=== PATIENT | male | born 1960 | race Caucasian/White ===

== ENCOUNTER 2018-07-04 09:34 | Emergency (ER) | payer BC, SELFPAY ==
[2018-07-04 10:20] LABS: Absolute Monocytes 0.8 K/uL (0.1-1.3); Absolute Neutrophil 3.6 K/uL (1.8-8.0); Basophils % 0.8 % (0-1.3); Eosinophils % 1.7 % (0-4.4); Hematocrit 40.4 % (39.6-49.0); Lymphocytes % 39.5 % (15.3-44.8); MPV 8.8 fL (7.6-11.3); RBC Red Blood Cell Count 5.69 M/uL (4.33-5.43)
[2018-07-04 10:22] LABS: Protime INR 0.86
[2018-07-04 10:37] LABS: ALT/SGPT 37 U/L (12-78); AST/SGOT 22 U/L (15-37); Albumin 3.5 g/dL (3.4-5.0); Alkaline Phosphatase 142 U/L (45-117); BUN Blood Urea Nitrogen 24 mg/dL (7-18); Bicarbonate 25 mmol/L (21-32); Bilirubin Direct 0.1 mg/dL (0-0.2); Bilirubin Total 0.4 mg/dL (0.2-1.0); Glucose Level 193 mg/dL (74-106); Magnesium 1.7 mg/dL (1.8-2.4); NT PRO-BNP 6 pg/mL (<125); Potassium 4.4 mmol/L (3.5-5.1); Protein, Total 7.5 g/dL (6.4-8.2); Sodium Level 138 mmol/L (136-145); Troponin (Emerg Dept Use Only) < 0.02 ng/mL (0.0-0.045)
--- NOTE | 2018-07-04 10:46 | RAD REPORT ---
EXAM DESCRIPTION: RAD - Chest Single View - 07/04/2018 10:35 am CLINICAL HISTORY: CHEST PAIN Chest pain. COMPARISON: Abdomen 1 View (KUB) dated 07/12/2016 FINDINGS: Portable technique limits examination quality. The lungs are grossly clear. The heart is normal in size. No displaced fractures. IMPRESSION: No acute intrathoracic process suspected.
--- NOTE | 2018-07-04 10:59 | ER ---
Nurse's Notes [facility] Name: Jj Kasper Age: 57 yrs Sex: Male : 1960 Arrival Date: 07/04/2018 Time: 09:37 Bed 13 Private MD: None, None Diagnosis: Chest pain, unspecified Presentation: 07/04 09:40 Presenting complaint: Patient states: mid-sternal chest pressure that began 2 days ago, aa5 it's episodic lasting a few hours. Pt also reports SOB. Denies nausea, denies vomiting. 09:40 Transition of care: patient was not received from another setting of care. Onset of aa5 symptoms was July 2018. Risk Assessment: Do you want to hurt yourself or someone else? Patient reports no desire to harm self or others. Initial Sepsis Screen: Does the patient meet any 2 criteria? No. Patient's initial sepsis screen is negative. Does the patient have a suspected source of infection? No. Patient's initial sepsis screen is negative. Care prior to arrival: None. 09:40 Acuity: VALARIE 3 aa5 09:40 Method Of Arrival: Ambulatory aa5 Historical: - Allergies: 09:40 No Known Allergies; aa5 - PMHx: 09:40 Hypertension; Thyroid problem; Hyperlipidemia; Diabetes - NIDDM; Myocardial infarction; aa5 - PSHx: 09:40 Appendectomy; aa5 - Immunization history:: Flu vaccine is not up to date. - Social history:: Smoking status: Patient/guardian denies using tobacco. - Ebola Screening: : No symptoms or risks identified at this time. Screenin:54 Abuse screen: Denies threats or abuse. Nutritional screening: No deficits noted. aa5 Tuberculosis screening: No symptoms or risk factors identified. Fall Risk None identified. Assessment: 09:45 General: Appears comfortable, Behavior is calm, cooperative. Pain: Complains of pain in aa5 mid-sternal area Pain does not radiate. Pain currently is 2 out of 10 on a pain scale. Quality of pain is described as pressure, Pain began 2-3 days ago. Is episodic, lasting more than 1 hour. Neuro: Level of Consciousness is awake, alert, obeys commands, Oriented to person, place, time, situation. Cardiovascular: Heart tones S1 S2 present Rhythm is sinus rhythm. Respiratory: Reports shortness of breath Airway is patent Respiratory effort is even, unlabored, Respiratory pattern is regular, symmetrical, Breath sounds are clear bilaterally. GI: Abdomen is round Bowel sounds present X 4 quads. Abd is soft and non tender X 4 quads. Patient currently denies nausea, vomiting. : No signs and/or symptoms were reported regarding the genitourinary system. EENT: No signs and/or symptoms were reported regarding the EENT system. Derm: Skin is pink, warm \T\ dry. Musculoskeletal: Range of motion: intact in all extremities. 09:54 Reassessment: Report given to TYLOR Joseph. aa5 Vital Signs: 09:46 BP 124 / 90; Pulse 95; Resp 18 S; Temp 98.2(O); Pulse Ox 98% on R/A; Weight 106.14 kg aa5 (R); Height 5 ft. 8 in. (172.72 cm) (R); Pain 2/10; 11:07 BP 108 / 67 LA; Pulse 95; Resp 19 S; Pulse Ox 96% on R/A; rv 09:46 Body Mass Index 35.58 (106.14 kg, 172.72 cm) aa5 ED Course: 09:37 Patient arrived in ED. mr 09:37 None, None is Private Physician. mr 09:39 Arm band placed on Patient placed in an exam room, on a stretcher. aa5 09:40 nuclear monitoring technician on. Pulse ox on. NIBP on. aa5 09:40 Patient has correct armband on for positive identification. Placed in gown. Bed in low aa5 position. Call light in reach. Side rails up X2. 09:46 Rashmi Kwan RN is Primary Nurse. aa5 09:47 Triage completed. aa5 09:49 Gene Arevalo PA is PHCP. jr8 09:49 Ricky Whaley MD is Attending Physician. jr8 09:59 Initial lab(s) drawn, by me, sent to lab. EKG done, by scientific technical writer. reviewed by Gene jbBrenden ASH. Inserted saline lock: 22 gauge in right antecubital area, using aseptic technique. Blood collected. 10:36 XRAY Chest (1 view) In Process Unspecified. EDMS 11:01 No provider procedures requiring assistance completed. IV discontinued, bleeding rv controlled, No redness/swelling at site. Pressure dressing applied. Patient maintains SpO2 saturation greater than 95% on room air. Administered Medications: 10:13 Not Given (PT TOOK IT AT HOME): Aspirin Chewable Tablet 324 mg PO once; 81 mg tablets x rv 4 11:00 Drug: Magnesium Oxide 400 mg Route: PO; rv 11:00 Follow up: Response: Medication administered at discharge. rv Outcome: 10:58 Discharge ordered by MD. ortega 11:01 Discharged to home ambulatory. rv 11:01 Condition: good 11:01 Discharge instructions given to patient, Instructed on discharge instructions, follow up and referral plans. Demonstrated understanding of instructions, follow-up care. 11:07 Patient left the ED. rv Signatures: Dispatcher [employer] EDMS Jeremy Romero jbAster Anderson KwanRashmi zapata, RN RN aa5 Gene Arevalo PA PA jr8 Jake Hutchins RN RN rv
--- NOTE | 2018-07-04 10:59 | EDPHYS ---
Physician Documentation [facility] Name: Jj Kasper Age: 57 yrs Sex: Male : 1960 Arrival Date: 07/04/2018 Time: 09:37 Bed 13 Private MD: None, None ED Physician Ricky Whaley HPI: 07/04 10:09 This 57 yrs old Male presents to ER via Ambulatory with complaints of Chest jr8 Pain. 10:09 The patient or guardian reports chest pain that is located primarily in the substernal jr8 area. Onset: suddenly, 3 day(s) ago. The pain does not radiate. Associated signs and symptoms: The patient has no apparent associated signs or symptoms. The chest pain is described as a pressure. Duration: The patient or guardian reports a single episode, that is still ongoing. Modifying factors: The symptoms are alleviated by nothing. the symptoms are aggravated by nothing. Severity of pain: At its worst the pain was moderate in the emergency department the pain is unchanged. The patient has not experienced similar symptoms in the past. The patient has not recently seen a physician. Historical: - Allergies: 09:40 No Known Allergies; aa5 - PMHx: 09:40 Hypertension; Thyroid problem; Hyperlipidemia; Diabetes - NIDDM; Myocardial infarction; aa5 - PSHx: 09:40 Appendectomy; aa5 - Immunization history:: Flu vaccine is not up to date. - Social history:: Smoking status: Patient/guardian denies using tobacco. - Ebola Screening: : No symptoms or risks identified at this time. ROS: 10:09 Eyes: Negative for injury, pain, redness, and discharge, ENT: Negative for injury, jr8 pain, and discharge, Neck: Negative for injury, pain, and swelling, Respiratory: Negative for shortness of breath, cough, wheezing, and pleuritic chest pain, Abdomen/GI: Negative for abdominal pain, nausea, vomiting, diarrhea, and constipation, Back: Negative for injury and pain, MS/Extremity: Negative for injury and deformity, Skin: Negative for injury, rash, and discoloration, Neuro: Negative for headache, weakness, numbness, tingling, and seizure. 10:09 Cardiovascular: Positive for chest pain, Negative for edema, orthopnea, palpitations, paroxysmal nocturnal dyspnea. Exam: 10:09 Eyes: Pupils equal round and reactive to light, extra-ocular motions intact. Lids and jr8 lashes normal. Conjunctiva and sclera are non-icteric and not injected. Cornea within normal limits. Periorbital areas with no swelling, redness, or edema. ENT: Nares patent. No nasal discharge, no septal abnormalities noted. Tympanic membranes are normal and external auditory canals are clear. Oropharynx with no redness, swelling, or masses, exudates, or evidence of obstruction, uvula midline. Mucous membranes moist. Neck: Trachea midline, no thyromegaly or masses palpated, and no cervical lymphadenopathy. Supple, full range of motion without nuchal rigidity, or vertebral point tenderness. No Meningismus. Chest/axilla: Normal chest wall appearance and motion. Nontender with no deformity. No lesions are appreciated. Cardiovascular: Regular rate and rhythm with a normal S1 and S2. No gallops, murmurs, or rubs. Normal PMI, no JVD. No pulse deficits. Respiratory: Lungs have equal breath sounds bilaterally, clear to auscultation and percussion. No rales, rhonchi or wheezes noted. No increased work of breathing, no retractions or nasal flaring. Abdomen/GI: Soft, non-tender, with normal bowel sounds. No distension or tympany. No guarding or rebound. No evidence of tenderness throughout. Back: No spinal tenderness. No costovertebral tenderness. Full range of motion. Skin: Warm, dry with normal turgor. Normal color with no rashes, no lesions, and no evidence of cellulitis. MS/ Extremity: Pulses equal, no cyanosis. Neurovascular intact. Full, normal range of motion. Neuro: Awake and alert, GCS 15, oriented to person, place, time, and situation. Cranial nerves II-XII grossly intact. Motor strength 5/5 in all extremities. Sensory grossly intact. Cerebellar exam normal. Normal gait. 10:10 ECG was reviewed by the Attending Physician. jr8 Vital Signs: 09:46 BP 124 / 90; Pulse 95; Resp 18 S; Temp 98.2(O); Pulse Ox 98% on R/A; Weight 106.14 kg aa5 (R); Height 5 ft. 8 in. (172.72 cm) (R); Pain 2/10; 11:07 BP 108 / 67 LA; Pulse 95; Resp 19 S; Pulse Ox 96% on R/A; rv 09:46 Body Mass Index 35.58 (106.14 kg, 172.72 cm) aa5 MDM: 09:54 Patient medically screened. 10:57 Differential diagnosis: abnormal EKG, acute myocardial infarction, acute pericarditis, jr8 chest wall pain, congestive heart failure cholecystitis, Cholelithiasis costochondritis, esophagitis, gastritis, gastroesophageal reflux disease (GERD), pancreatitis, pleurisy, pneumonia, pneumothorax, pulmonary embolus, stable angina, thoracic aortic disection, unstable angina. The patient was not given aspirin in the Emergency Department. Patient reports taking aspirin within the past 24 hours. Data reviewed: vital signs, nurses notes, lab test result(s), EKG, radiologic studies, plain films, and as a result, I will discharge patient. Data interpreted: 911 operator: rate is 95 beats/min, rhythm is normal sinus rhythm, with no ectopy, Interpretation: normal rate, Pulse oximetry: on room air is 98 %. Interpretation: normal. Counseling: I had a detailed discussion with the patient and/or guardian regarding: the historical points, exam findings, and any diagnostic results supporting the discharge/admit diagnosis, lab results, radiology results, the need for outpatient follow up, a asp net programmer, a family practitioner, to return to the emergency department if symptoms worsen or persist or if there are any questions or concerns that arise at home. 07/04 09:54 Order name: Basic Metabolic Panel; Complete Time: 10:42 07/04 09:54 Order name: CBC with Diff; Complete Time: 10:34 07/04 09:54 Order name: LFT's; Complete Time: 10:42 07/04 09:54 Order name: Magnesium; Complete Time: 10:42 07/04 09:54 Order name: NT PRO-BNP; Complete Time: 10:42 07/04 09:54 Order name: PT-INR; Complete Time: 10:34 07/04 09:54 Order name: Troponin (emerg Dept Use Only); Complete Time: 10:42 07/04 09:54 Order name: XRAY Chest (1 view); Complete Time: 10:52 07/04 09:54 Order name: EKG; Complete Time: 09:57 07/04 09:54 Order name: Cardiac monitoring; Complete Time: 10:07/04 09:54 Order name: EKG - Nurse/Tech; Complete Time: 07/04 09:54 Order name: IV Saline Lock; Complete Time: 07/04 09:54 Order name: Labs collected and sent; Complete Time: 07/04 09:54 Order name: O2 Per Protocol; Complete Time: 07/04 09:54 Order name: O2 Sat Monitoring; Complete Time: EC:10 Rate is 93 beats/min. Rhythm is regular, Normal Sinus Rhythm. QRS [place] is Normal. [place] jr8 interval is normal at 146 msec. QRS interval is normal at 102 msec. QT interval is normal at 447 msec. No Q waves. T waves are Normal. No ST changes noted. Clinical impression: Normal ECG. Interpreted by me. Reviewed by me. Administered Medications: 10:13 Not Given (PT TOOK IT AT HOME): Aspirin Chewable Tablet 324 mg PO once; 81 mg tablets x rv 4 11:00 Drug: Magnesium Oxide 400 mg Route: PO; rv 11:00 Follow up: Response: Medication administered at discharge. rv Disposition: 17:46 Co-signature as Attending Physician, Ricky Whaley MD. rn Disposition: 07/04/18 10:58 Discharged to Home. Impression: Chest pain, unspecified. - Condition is Stable. - Discharge Instructions: Nonspecific Chest Pain, Chest Wall Pain, Chest Pain Observation. - Medication Reconciliation Form, Thank You Letter, Antibiotic Education, Prescription Opioid Use form. - Follow up: Private Physician; When: 2 - 3 days; Reason: Recheck today's complaints, Continuance of care, Re-evaluation by your physician. - Problem is new. - Symptoms have improved. Signatures: Dispatcher [employer] EDMS Ricky Whaley MD MD rn Calderon, Audri, RN RN aa5 Gene Arevalo PA PA jr8 Jake Hutchins RN RN rv Corrections: (The following items were deleted from the chart) 11:07 10:58 07/04/2018 10:58 Discharged to Home. Impression: Chest pain, unspecified. rv Condition is Stable. Forms are Medication Reconciliation Form, Thank You Letter, Antibiotic Education, Prescription Opioid Use. Follow up: Private Physician; When: 2 - 3 days; Reason: Recheck today's complaints, Continuance of care, Re-evaluation by your physician. Problem is new. Symptoms have improved. jr8
[2018-07-04] MEDS ORDERED: MAGNESIUM OXIDE 400 MG TAB ONE (11:06)
[2018-07-04 11:13] VITALS: TEMP 98.2
[2018-07-04 11:15] VITALS: BP 108/67; O2SAT 96
== END 2018-07-04 11:07 | disposition home or self-care (01) ==
LOC: ER 09:34
DX: R07.9 Chest pain, unspecified (principal); I10 Essential (primary) hypertension; I25.2 Old myocardial infarction
CPT/HCPCS: 36415; 71045; 80048; 80076; 83735; 83880; 84484; 85025; 85610; 93005; 99285